=== PATIENT | male | born 1950 | race African-American/Black ===

== ENCOUNTER → 2017-06-01 | Outpatient (CLI) | payer OTHER ==
--- NOTE | 2017-06-01 17:10 | XCELERA REPORT ---
[address] [address] Lower Extremity Arterial Evaluation Name: NEW LYLES Age: 66 yrs Gender: Male : 1950 Patient Status: Outpatient Patient Location: Study Date: 06/01/2017 02:33 PM Procedure: A color flow and duplex scan of the lower extremity arteries was performed bilaterally with velocity and waveform anaylsis. Ankle brachial indicies performed. 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 Biphasic with well preserved amplitude in the Anterior Tibial artery, after a short segment occlusion. Occlusion as noted. Ankle Brachial index is 1.2. Left Side Arterial Evaluation Normal velocity and triphasic waveforms noted from the Common Femoral artery to the infregeniculate vessels. 0 % stenosis. Ankle Brachial index is 1.2. Interpretation Summary Mild hemodynamically significant lesions in the right lower extremity only, on duplex imaging, at rest. No hemodynamically significant lesions in the left lower extremity only, on duplex imaging, at rest. : DELROY GILL > Delory Gill
--- NOTE | 2017-06-02 08:34 | XCELERA REPORT ---
[address] [address] Lower Extremity Venous Evaluation Name: NEW LYLES Age: 66 yrs Gender: Male : 1950 Patient Status: Outpatient Patient Location: Study Date: 06/01/2017 01:54 PM Procedure: Color flow and duplex imaging bilaterally of the veins of the lower extremities as well as the Common Femoral veins. Reason For Study: PAIN/SWELLING Ordering Physician: DELROY GILL Performed By: Anahy Miller Right Sided Venous Evaluation Normal vessel filling wall to wall, compression and augmentation as well as Colour flow down to the infrageniculate veins. Left Sided Venous Evaluation Abnormal vessel filling, lack of augmentation some Colour flow noted in the Popliteal vein . 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 : DELROY GILL > Delroy Gill
== END ==
LOC: SP 13:44
PROVIDERS: ATTEND Surgery
DX: M79.669 Pain in unspecified lower leg (principal)
CPT/HCPCS: 93925; 93970

== ENCOUNTER 2018-03-30 08:04 | Day surgery (SDC) | payer OTHER ==
[~2018-03-30 08:04] MED LIST: DIPHENHYDRAMINE HCL 50 MG/ML VIAL ONE; EPINEPHRINE INJ 1 MG/10 ML DISP.SYRIN ONE; FENTANYL CITRATE INJ/PF 100 MCG/2 ML AMPUL ONE; FLUMAZENIL INJ 0.5 MG/5 ML VIAL ONE; GLUCAGON,HUMAN RECOMB 1 MG INJ ONE; NALOXONE HCL INJ/PF 0.4 MG/1 ML SDV ONE; ONDANSETRON HCL INJ/PF 4 MG/2 ML SDV ONE
[2018-03-30] MEDS: MIDAZOLAM 2 MG/2 ML INJ ONE ×2 (08:30→08:35)
--- NOTE | 2018-03-30 08:49 | Operative Report ---
Operative Report DATE OF SURGERY: 03/30/18 Operative Report: The risks, benefits and alternatives of the procedure including the risks of bleeding, perforation requiring surgery are explained to the patient in detail and informed consent is obtained. The patient is placed in a left, lateral decubital position. Timeout was called. Conscious sedation medications are provided. Rectal examination is done which did not reveal any masses, tears or fissures. An Olympus videoscope was inserted into the patient's rectum. The scope was then carefully advanced all the way to the cecum. The cecum was identified by the usual anatomical landmarks including the ileocecal valve as well as appendiceal office. Photodocumentation is obtained. Scope was then sequentially pulled back via the various segments of the colon including the ascending colon, hepatic flexure, transverse colon, splenic flexure, and finding to the rectosigmoid portions of the colon. Retroflexion maneuvers performed. Scope withdrawal time 10 minutes. PREOPERATIVE DIAGNOSIS: Personal history of polyp POSTOPERATIVE DIAGNOSIS: Sigmoid polyp removed via snare polypectomy OPERATION: Colonoscopy with snare polypectomy SURGEON: KIM DAVIS ANESTHESIA: Moderate Sedation - 4 mg of Versed, 75 mcg of fentanyl. Conscious sedation monitoring time 30 minutes. TISSUE REMOVED OR ALTERED: As noted above. COMPLICATIONS: None. ESTIMATED BLOOD LOSS: None. INTRAOPERATIVE FINDINGS: As noted above. PROCEDURE: Patient tolerated the procedure well. No immediate postprocedure complications are noted. Patient discharged in good condition. Discharge date 03/30/2018. Discharge diet: Regular. Discharge activity: Regular. 2-3-week follow-up to discuss findings. Patient is instructed to call the office or proceed to the emergency room should there be any further problems or questions. 5-year surveillance colonoscopy.
[2018-03-30] MEDS ORDERED: SIMETHICONE 80 MG TAB.CHEW ONE (09:00)
[2018-03-30 10:06] VITALS: BP 142/85
== END 2018-03-30 10:15 | disposition home or self-care (01) ==
LOC: END 08:04
PROVIDERS: ATTEND Internal Medicine Gastroenterology
DX: Z12.11 Encounter for screening for malignant neoplasm of colon (principal); K63.5 Polyp of colon; Z86.010 Personal history of colon polyps
CPT/HCPCS: 45385; 88305 ×2; J2250; J3010; J0171; J1200; J1610; J2310; J2405; J3490